=== PATIENT | female | born 1960 | race Caucasian/White ===

== ENCOUNTER 2017-09-01 13:27 | Inpatient (IN) | payer OTHER ==
[2017-09-01 13:48] LABS: #Basophils 0.1 thou/uL (0.0-0.2); #Eosinphils 0.2 thou/uL (0.0-0.7); #Lymphocytes 2.6 thou/uL (1.20-3.40); #Monocytes 1.1 thou/uL (0.11-0.59); #Neutrophils 5.2 thou/uL (1.40-6.50); %Basophils 0.7 % (0.0-1.0); %Eosinophils 1.9 % (0.0-10.0); %Neutrophils 57.4 % (42.0-75.0); Hemoglobin 15.2 g/dL (12.0-16.0); Mean Corpuscular HGB CONC 34.2 g/dL (32.0-36.0); Mean Corpuscular Hemoglobin 30.2 pg (27.0-31.0); Mean Corpuscular Volume 88.2 fl (81.0-99.0); Mean Platelet Volume 6.8 fL (7.4-10.4); Platelet Count 315 thou/uL (130-400); RBC Distribution Width 12.3 % (11.5-14.5); Red Blood Cell (RBC) Count 5.03 mill/uL (4.20-5.40); White Blood Cell (WBC) Count 9.1 thou/uL (4.8-10.8)
[2017-09-01 14:09] LABS: ALT (SGPT) 44 U/L (8-55); AST (SGOT) 28 U/L (5-34); Albumin 3.8 g/dL (3.5-5.0); Alkaline Phosphatase 74 U/L (40-150); Anion Gap 11 mmol/L (10-20); BUN (Urea Nitrogen) 15 mg/dL (9.8-20.1); Bilirubin, Total 0.4 mg/dL (0.2-1.2); CK (CPK) 52 U/L (29-168); Calc. Creatinine Clearance 0 mL/min (70-130); Calcium 9.5 mg/dL (7.8-10.44); Carbon Dioxide 30 mmol/L (22-29); Chloride 100 mmol/L (98-107); Estimated GFR-MDRD Greater than 90; Globulin 2.9 g/dL (2.4-3.5); Glucose 104 mg/dL (70-105); Lipase 11 U/L (8-78); Potassium 3.1 mmol/L (3.5-5.1); Protein, Total 6.7 g/dL (6.0-8.3); Sodium 138 mmol/L (136-145)
[2017-09-01 14:14] LABS: CKMB 0.9 ng/mL (0-6.6); Troponin I Less than 0.010 ng/mL (< 0.028)
--- NOTE | 2017-09-01 14:18 | RAD ---
PORTABLE CHEST: HISTORY: Chest pain. FINDINGS: The lung milan are clear. The heart and mediastinum are unremarkable. Vascular markings are normal . IMPRESSION: Unremarkable portable chest. POS: OFF
[2017-09-01] MEDS ORDERED: Diltiazem 125 MG in Sodium Chloride 0.9% 100 ML IVPB SCH ×2 (14:45→15:45)
[2017-09-01] MEDS ORDERED: Ondansetron HCl/PF 4 MG/2 ML Vial IVP PRN (15:37)
[2017-09-01] MEDS ORDERED: Bisacodyl 5 MG TAB PO PRN (15:37)
[2017-09-01] MEDS ORDERED: Acetaminophen 650 MG Suppository PR PRN (15:37)
[2017-09-01] MEDS ORDERED: Acetaminophen 325 MG TAB PO PRN (15:37)
--- NOTE | 2017-09-01 16:16 | HP ---
PRIMARY CARE PHYSICIAN: Dr. Bhavin Fragoso. CHIEF COMPLAINT: Palpitations. HISTORY OF PRESENT ILLNESS: Ms. Felix is a pleasant 56-year-old lady who was seen at [facility] on 09/01/2017. She reports that last week, she was diagnosed with bronchitis. S he reports that she was having cough at that time. She was treated with Z-KAVITHA. Around 5:00 p.m. yesterday, she developed palpitations. She also reports left-sided chest discomfort that was dull. Both chest pain and palpitations have been going on till now. She also reports some pain over the back of her left shoulder and left upper arm. She also reports shortness of breath wi th exertion. She denies any orthopnea or paroxysmal nocturnal dyspnea. REVIEW OF SYSTEMS: The following complete review of systems was negative, unless otherwise mentioned in the HPI or below: Constitutional: Weight loss or gain, ability to conduct usual activities. Skin: Rash, itching. Eyes: Double vision, pain. ENT/Mouth: Nose bleeding, neck stiffness, pain, tenderness. Cardiovascular: Palpitations, dyspnea on exertion, orthopnea. Respiratory: Shortness of breath, wheezing, cough, hemoptysis, fever or night sweats. Gastrointestinal: Poor appetite, abdominal pain, heartburn, nausea, vomiting, constipation, or diarr hea. Genitourinary: Urgency, frequency, dysuria, nocturia. Musculoskeletal: Pain, swelling. Neurologic/Psychiatric: Anxiety, depression. Allergy/Immunologic: Skin rash, bleeding tendency. PAST MEDICAL HISTORY: Significant for hypertension and dyslipidemia. PAST SURGICAL HISTORY: Bladder lift surgery. SOCIAL HISTORY: The patient denies tobacco use. She reports occasional alcohol use. She denies any recreational drug use. FAMILY HISTORY: Atrial fibrillation in her father. ALLERGIES: PENICILLIN. CURRENT MEDICATIONS: Include citalopram 20 mg daily, chlorthalidone 25 mg daily, and Crestor 10 mg d aily. PHYSICAL EXAMINATION: GENERAL: Ms. Felix is awake and alert, not in acute distress. VITAL SIGNS: Blood pressure is 112/87, pulse is 113, she is breathing at rate of 17 and saturating 1 00% on 2 liters of oxygen. She is afebrile. EYES: No scleral icterus. No conjunctival pallor. ENT: Moist mucosal membranes, no oropharyngeal erythema or exudates. NECK: Supple, nontender, normal range of movement. Trachea is midline. RESPIRATORY: Accessory muscles of breathing are not active. Chest wall movements are symmetric bila terally. LUNGS: Clear to auscultation without wheeze, rhonchi or crepitations. CARDIOVASCULAR: S1 and S2 are heard, tachycardic and irregular. Peripheral pulses palpable. No car otid bruit, no pericardial rub. ABDOMEN: Soft, nontender, bowel sounds heard, no hepatomegaly, no splenomegaly. NEUROLOGIC: Cranial nerves II through XII intact. Deep tendon reflexes 2+. MUSCULOSKELETAL: Power is 5/5 in all 4 extremities. Normal range of movement at all major extremity joints. SKIN: No rashes or subcutaneous nodules. LYMPHATIC: No cervical lymphadenopathy. PSYCHIATRIC: Normal mood, normal affect, patient is oriented to person, place, and time. LABORATORY DATA: Ms. Felix's labs and investigations were reviewed. I reviewed her electrocardiogr am, which shows atrial fibrillation with rapid ventricular response, no ST changes to suggest an acut e coronary syndrome. I also reviewed her chest x-ray, which does not show any pulmonary infiltrates. She has an unremarkable CBC, normal D-dimer of 0.3, normal sodium, decreased potassium of 3.1, norm al LFTs, normal creatinine, normal troponin I and a slightly elevated BNP of 382. ASSESSMENT AND PLAN: Ms. Felix is a pleasant 56-year-old lady who was seen at [facility] on 09/01/2017. Her problem list includes: 1. Palpitations: Secondary to atrial fibrillation with rapid ventricular response. 2. Atrial fibrillation with rapid ventricular response: Ms. Felix will be admitted to the hospital . She has received Cardizem bolus. We will continue her on Cardizem drip. We will check 2D echocar diogram. We will check TSH level. We will consult Cardiology for opinion and help with management. We will start her on aspirin for now. 3. Hypokalemia: Replace potassium. 4. Hypertension: Monitor vital signs, titrate antihypertensives as needed. 5. Dyslipidemia: Continue statin. Many thanks for allowing me to participate in your patient's care. Please feel free to contact me wi th any questions or concerns. LEVEL OF RISK: High. LEVEL OF COMPLEXITY: High.
[2017-09-01] MEDS ORDERED: Potassium Chloride 20 MEQ TAB PO SCH (16:30)
[2017-09-01 16:53] VITALS: BP 107/76; TEMP 98.5
[2017-09-01 17:28] LABS: Troponin I Less than 0.010 ng/mL (< 0.028)
[2017-09-01 17:34] VITALS: BMI 26.5
--- NOTE | 2017-09-01 18:32 | CON ---
DATE OF CONSULTATION: 09/01/2017 REASON FOR CONSULTATION: Atrial fibrillation. HISTORY OF PRESENT ILLNESS: Ms. Felix is a very pleasant 56-year-old woman with no previous past me dical history of atrial fibrillation recently presented with palpitations. She was found to be in at rial fibrillation. She states her episode occurred for 20 hours. She has had intermittent episodes in the past, but this episode became consistent. No chest pain or pressure or other associated sympt oms noted. PAST MEDICAL HISTORY: Hypertension, hyperlipidemia, bladder suspension. SOCIAL HISTORY: No current tobacco or alcohol use. ALLERGIES: PENICILLIN. FAMILY HISTORY: Positive for atrial fibrillation. MEDICATIONS: Chlorthalidone, Crestor. REVIEW OF SYSTEMS: Ten-point review of systems reviewed and is as above, otherwise negative. PHYSICAL EXAMINATION: VITAL SIGNS: Blood pressure 107/76, pulse 85, temperature 98.5. GENERAL: Patient is a pleasant female, who is in no acute distress. The patient appears her stated age. NEUROLOGIC: The patient is alert and oriented times 3 with no focal neurologic deficits. HEENT: Sclerae without icterus. Mouth has moist mucous membranes with normal pallor. NECK: No JVD. Carotid upstroke brisk. No bruits bilaterally. LUNGS: Clear to auscultation with unlabored respirations. BACK: No scoliosis or kyphosis. CARDIAC: Regular rate and rhythm with normal S1 and S2. No S3 or S4 noted. No significant rubs, murmurs, thrills, or gallops noted throughout the precordium. PMI is not displaced. There is no parasternal heave. ABDOMEN: Soft, nontender, nondistended. No peritoneal signs present. No hepatosplenomegaly. No abnormal striae. EXTREMITIES: 2+ femoral and 2+ dorsalis pedis pulses. No cyanosis, clubbing, or edema. SKIN: No gross abnormalities. PERTINENT LABS: Hemoglobin 15.2, creatinine 0.63. BNP of 382. TSH is 0.0026. IMPRESSION: Atrial fibrillation. RECOMMENDATIONS: Likely related to hyperthyroidism. At this point, her CHADS-VASc score is 2. Cain mmend anticoagulation therapy in addition to beta betsey treatment. At this point, we will hold off on Multaq until her TSH improved. We will discuss with Dr. Presley.
[2017-09-01 20:17] LABS: Free T4 (Free Thyroxine) 2.81 ng/dL (0.70-1.48)
[2017-09-01] MEDS ORDERED: Benzonatate 100 MG CAP PO SCH (21:00)
--- NOTE | 2017-09-02 00:39 | DIS ---
DATE OF ADMISSION: 09/01/2017 DATE OF DISCHARGE: 09/01/2017 PRIMARY CARE PHYSICIAN: Bhavin Fragoso M.D. DISCHARGE DIAGNOSES: 1. Atrial fibrillation. 2. Hyperthyroidism, suspected. DISCHARGE MEDICATIONS: Metoprolol succinate 25 mg daily, rivaroxaban 20 mg daily, Crestor 10 mg sylvia y, Celexa 20 mg daily, chlorthalidone 25 mg daily. CONSULTATIONS DURING THIS HOSPITALIZATION: Cardiology, Dr. Amaya. HOSPITAL COURSE: Ms. Felix is a pleasant 56-year-old lady who was admitted to [facility] for atrial fibrillation with rapid ventricular response on 09/01/2017. She was started on a diltiazem drip. She is spontaneously converted to normal sinus rhythm the same day. She was found to have a low TSH of 0.0026, suggesting hyperthyroidism. She is advised to follow up w ith her primary care provider for further testing of thyroid profile. She was seen by Cardiology Service. She was offered a 2D echocardiogram while in the hospital. She declined to have the echocardiogram as an inpatient. She will follow up with Cardiology Service as o utpatient. Many thanks for allowing me to participate in your patient's care. Please feel free to contact me wi th any questions or concerns. DISCHARGE DESTINATION: Home.
--- NOTE | 2017-09-02 07:00 | ADD-DIS ---
ADDENDUM Ms. Felix's free T3 and free T4 levels were added as an add-on test to the blood at [place] on . At the time of this dictation, the levels of free T3 and free T4 are not available. She i s advised to follow up with her primary care provider for the result.
[2017-09-02] MEDS ORDERED: Dronedarone HCl 400 MG TAB PO SCH (08:00)
[2017-09-02] MEDS ORDERED: Rivaroxaban 10 MG TAB PO SCH (09:00)
[2017-09-02] MEDS ORDERED: Aspirin 81 mg Enteric Coated Tablet PO SCH (09:00)
[2017-09-02] MEDS ORDERED: Enoxaparin Sodium 40 MG/0.4 ML SYRINGE SC SCH (09:00)
== END 2017-09-01 18:57 | disposition home or self-care (01) | DRG 310 ==
LOC: ERS 13:27 → 2NO 15:25
PROVIDERS: ADMIT Internal Medicine; ATTEND Internal Medicine
DX: I48.91 Unspecified atrial fibrillation (principal); E05.90 Thyrotoxicosis, unspecified without thyrotoxic crisis or storm; E87.6 Hypokalemia; I10 Essential (primary) hypertension; E78.5 Hyperlipidemia, unspecified; Z88.0 Allergy status to penicillin; Z79.899 Other long term (current) drug therapy
CPT/HCPCS: 36415; 71045; 80053; 82553; 83690; 83880; 84439; 84443; 84481; 84484; 85025; 85379; 93005; 96365; 96376; J7050

== ENCOUNTER 2017-09-08 08:32 | Inpatient (IN) | payer OTHER ==
[2017-09-08 09:14] LABS: #Basophils 0.1 thou/uL (0.0-0.2); #Eosinphils 0.1 thou/uL (0.0-0.7); #Lymphocytes 2.3 thou/uL (1.20-3.40); #Monocytes 1.1 thou/uL (0.11-0.59); #Neutrophils 5.5 thou/uL (1.40-6.50); %Basophils 0.6 % (0.0-1.0); %Eosinophils 0.9 % (0.0-10.0); %Lymphocytes 25.3 % (21.0-51.0); %Monocytes 11.9 % (0.0-10.0); %Neutrophils 61.4 % (42.0-75.0); Hemoglobin 15.9 g/dL (12.0-16.0); Mean Corpuscular Volume 88.2 fl (81.0-99.0); Mean Platelet Volume 7.2 fL (7.4-10.4); Platelet Count 367 thou/uL (130-400); RBC Distribution Width 12.2 % (11.5-14.5); Red Blood Cell (RBC) Count 5.31 mill/uL (4.20-5.40)
[2017-09-08] MEDS ORDERED: Esmolol 2,500 MG/250 ML 0 ML ONE (09:21)
[2017-09-08] MEDS ORDERED: Esmolol 2,500 MG/250 ML 250 ML IVPB SCH ×2 (09:30→15:15)
[2017-09-08] MEDS ORDERED: Esmolol 100 MG/10 ML VIAL IVP SCH (09:30)
--- NOTE | 2017-09-08 09:31 | RAD ---
UPRIGHT PORTABLE CHEST 1 VIEW: Date: 09/08/17 HISTORY: 56-year-old female with history of chest pain, shortness of breath, and elevated heart rate. COMPARISON: 09/01/17. FINDINGS: Monitor leads overlie the chest. Heart size is within normal limits. The lungs are clear. IMPRESSION: No acute intrathoracic disease. POS: [facility]
[2017-09-08 09:38] LABS: ALT (SGPT) 48 U/L (8-55); AST (SGOT) 27 U/L (5-34); Alkaline Phosphatase 73 U/L (40-150); Anion Gap 13 mmol/L (10-20); BUN (Urea Nitrogen) 17 mg/dL (9.8-20.1); Bilirubin, Total 0.7 mg/dL (0.2-1.2); CK (CPK) 43 U/L (29-168); Calc. Creatinine Clearance 0 mL/min (70-130); Calcium 10.6 mg/dL (7.8-10.44); Carbon Dioxide 32 mmol/L (22-29); Chloride 91 mmol/L (98-107); Estimated GFR-MDRD Greater than 90; Globulin 3.3 g/dL (2.4-3.5); Glucose 116 mg/dL (70-105); Protein, Total 7.3 g/dL (6.0-8.3); Sodium 133 mmol/L (136-145)
[2017-09-08 09:40] LABS: BHCG - Serum Negative (NEGATIVE); Pregs Control Background? CLEAR/WHITE (CLR/WHITE); Pregs Control Bar Appear? YES (CONTROL BAR)
[2017-09-08 09:42] LABS: CKMB 0.5 ng/mL (0-6.6); Troponin I Less than 0.010 ng/mL (< 0.028)
[2017-09-08 09:46] LABS: Potassium 2.6 mmol/L (3.5-5.1)
[2017-09-08 10:08] LABS: Thyroid Stimulating Hormone 0.0031 uIU/mL (0.35-4.94)
[2017-09-08] MEDS ORDERED: Potassium Chloride 20 MEQ TAB ONE (13:04)
[2017-09-08 14:51] VITALS: BMI 26.3
[2017-09-08] MEDS ORDERED: Acetaminophen 325 MG TAB PO PRN (15:00)
[2017-09-08] MEDS ORDERED: Ondansetron HCl/PF 4 MG/2 ML Vial IVP PRN (15:00)
[2017-09-08] MEDS ORDERED: Mag-Al 1200 mg/1200 mg/30 ML UDCUP PO PRN (15:00)
[2017-09-08] MEDS ORDERED: Bisacodyl 5 MG TAB PO PRN (15:00)
[2017-09-08] MEDS ORDERED: Potassium Chloride 20 MEQ TAB PO SCH (15:30)
[2017-09-08] MEDS ORDERED: Sodium Chloride 0.9% 500 ML IV SCH (15:45)
[2017-09-08] MEDS: Sodium Chloride 0.9% 1,000 ML IV SCH ×2 (15:53→20:43)
[2017-09-08] MEDS: Methimazole 5 MG TAB PO SCH ×2 (16:28→20:43)
[2017-09-08] MEDS: Rivaroxaban 10 MG TAB PO SCH (16:29)
--- NOTE | 2017-09-08 23:03 | HP ---
DATE OF ADMISSION: 09/08/2017 PRIMARY CARE PHYSICIAN: Dr. Bhavin Fragoso. REASON FOR ADMISSION: Recurrent atrial fibrillation and hyperthyroidism. HISTORY OF PRESENT ILLNESS: Ms. Tianna Felix a 56-year-old female with a significant past medic al history of hyperthyroidism, atrial fibrillation, and hyperlipidemia, who presents to the emergency room complaining of palpitations, which began approximately 7:00 p.m. yesterday. She was then evalu ated at the lime kiln worker helper's office today and then sent to the emergency room. She denies any chest pa in or shortness of breath. Of note, the patient was recently admitted and discharged from [facility] on 09/01/2017, at which time she had atrial fibrillation secondary to her hyperthyroidism. Her TS H at the time of 0.0026. She was discharged and later on a T3 and T4 was added to her profile and re turned back free T3 level of 12.21 and a free T4 level of 2.81. During that admission, echocardiogra m was offered; however, she did not want it. She did have an echocardiogram as an outpatient, which reportedly had some mild diastolic dysfunction with a normal EF. She returns back to the emergency r oom today complaining of palpitations. She was found to be in atrial fibrillation with a heart rate of 140-150. She was placed on esmolol drip and subsequently admitted to the critical care unit. Of note, she was placed on esmolol drip. There was no Cardizem available. She is currently resting com fortably. She denies any shortness of breath, any tremors, no diaphoresis. She has not noticed any visual changes. There has been no report of orbitopathy or signs of exophthalmos. She states that s he was trying to get scheduled into the geropsychologist; however, was unable to. She is now currentl y resting comfortably. She denies any pain on swallowing. She has been admitted to the Critical Car e Unit for further evaluation. She is currently on esmolol drip. PAST MEDICAL HISTORY: 1. Atrial fibrillation. 2. Hyperthyroidism. 3. Hyperlipidemia. 4. Anxiety. PAST SURGICAL HISTORY: A bladder lift surgery. CODE STATUS: FULL CODE. SOCIAL HISTORY: Denies any alcohol use, tobacco use, or illicit drug use. No excessive caffeine use . CURRENT MEDICATIONS: 1. Crestor 10 mg p.o. daily. 2. Xarelto 20 mg p.o. daily. 3. Metoprolol succinate 25 mg p.o. daily. 4. Celexa 20 mg p.o. daily. 5. Chlorthalidone 25 mg p.o. daily. ALLERGIES: PENICILLINS. FAMILY HISTORY: Significant for atrial fibrillation in her father. REVIEW OF SYSTEM: The following complete review of systems was negative, unless otherwise mentioned in the HPI or below: Constitutional: Weight loss or gain, sense of well-being, ability to conduct usual activities, exerc ise tolerance. Skin/Breast: Rash, itching, changes in hair growth or loss, nail changes, breast lumps, tenderness, swelling, nipple discharge. Eyes: Vision, double vision, tearing, blind spots, pain. ENT/Mouth: Headaches (location, time of onset, duration, precipitating factors), vertigo, lightheade dness, injury. Vision, double vision, tearing, blind spots, pain, nose bleeding, colds, obstruction, discharge, dental difficulties, gingival bleeding, dentures, neck stiffness, pain, tenderness, masses in thyroid or other areas Cardiovascular: Precordial pain, substernal distress, palpitations, syncope, dyspnea on exertion, or thopnea, nocturnal paroxysmal dyspnea, edema, cyanosis, hypertension, heart murmurs, varicosities, ph lebitis, claudication. Respiratory: Pain, shortness of breath, wheezing, stridor, cough, hemoptysis, fever or night sweats. Gastrointestinal: Poor appetite, dysphagia, indigestion, abdominal pain, heartburn, eructation, naus ea, vomiting, hematemesis, jaundice, constipation, or diarrhea, abnormal stools (raegan-colored, tarry, bloody, greasy, foul smelling), flatulence, hemorrhoids, recent changes in bowel habits. Genitourinary: Urgency, frequency, dysuria, nocturia, hematuria, polyuria, oliguria, unusual (or deep nge in) color of urine, stones, hesitancy, change in size of stream, dribbling, acute retention or in continence, libido, potency. Musculoskeletal: Pain, swelling, redness or heat of muscles or joints, limitation, of motion, muscul ar weakness, atrophy, cramps. Neurologic/Psychiatric: Convulsions, paralyses, tremor, incoordination, parasthesias, difficulties w ith memory of speech, sensory or motor disturbances, or muscular coordination (ataxia, tremor), emoti onal problems, anxiety, depression, previous psychiatric care, unusual perceptions, hallucinations. Allergy/Immunologic: Skin rash, anemia, bleeding tendency, polydipsia, polyuria, intolerance to heat or cold. PHYSICAL EXAMINATION: VITAL SIGNS: Blood pressure currently is 101/61, heart rate is ranging from 101-128, respirations ar e 16, and O2 sats are 94% on room air. GENERAL: She is in no acute distress, nontoxic appearing. EYES: Show pupils are round and reactive to light and accommodation. No pale conjunctivae. ENT/MOUTH: Moist oral mucosa, no lesions. NECK: On thyroid examination, no overt goiter is palpable. RESPIRATORY: Equal chest wall expansion. No wheezes, rhonchi, or rales. CARDIOVASCULAR: S1 and S2 present. No murmurs, gallops, or rubs. GASTROINTESTINAL: Soft, nontender, nondistended. Bowel sounds presents in all 4 quadrants. MUSCULOSKELETAL: Good range of motion in all 4 extremities. No clubbing, no cyanosis. LYMPHATIC: No swollen or painful cervical, axillary lymph nodes. NEUROLOGIC: No ptosis, no facial asymmetry, jaw protrusion, no focal deficits. PSYCHIATRIC: She is awake, alert to time, place, person, answers questions appropriately. SKIN: Normal skin turgor. LABORATORY AND X-RAY FINDINGS: 1. Taken in the emergency room today showed sodium 133, potassium 2.6, chloride 91, carbon dioxide 3 2, anion gap 13, BUN 17, creatinine 0.63, glucose is 116, calcium 10.6, magnesium is 2.0. AST and AL T 27 and 48. Alkaline phosphatase 73. CK 43, troponin less than 0.01. TSH 0.0031. Free T4 is 2.81 , free T3 is 12.21. Serum is negative. WBC is 9.3, hemoglobin 15.9, hematocrit 46.9, plat elet count 362,000. Chest x-ray done in the emergency room revealed no acute intrathoracic disease. 2. EKG revealed atrial fibrillation . ASSESSMENT AND PLAN: Ms. Tianna Felix a 56-year-old female with past medical, atrial fibrillati on, hyperthyroidism, hyperlipidemia, who presents to the emergency room complaining of palpitations. 1. Palpitations, at the time, we will admit the patient to the critical care unit. Palpitations sec ondary to atrial fibrillation was most likely precipitated by hyperthyroidism. At this time, she has been placed on esmolol drip and will titrate accordingly. She will eventually need to be transition ed to a beta betsey as propranolol or atenolol. We will consult Cardiology for further assistance i n this. 2. Hyperthyroidism. Given that she is not , we will start the patient on methimazole and mo nitor her clinical response. She will require further evaluation. Most likely a thyroid ultrasound or radioiodine uptake; however, this needs to be done as an outpatient when she is more stable from a cardiac standpoint. 3. Hypokalemia, replete. 4. Resume the patient's medications. 5. We will obtain echocardiogram results from her lime kiln worker helper's office. 6. Resume Xarelto. 7. FULL CODE. 8. P.r.n. order set. 9. Heart healthy diet. 10. I explained all this to the patient at bedside. She is agreeable to the plan of treatment. All questions have been answered. 11. The patient's further hospital course will be dictated by her clinical course while here. Total critical care time spent 34 minutes.
[2017-09-09] MEDS: Sodium Chloride 0.9% 1,000 ML IV SCH ×3 (01:25→11:53)
[2017-09-09 04:57] LABS: Anion Gap 9 mmol/L (10-20); BUN (Urea Nitrogen) 15 mg/dL (9.8-20.1); Calc. Creatinine Clearance 138 mL/min (70-130); Calcium 8.8 mg/dL (7.8-10.44); Carbon Dioxide 28 mmol/L (22-29); Chloride 105 mmol/L (98-107); Estimated GFR-MDRD Greater than 90; Glucose 93 mg/dL (70-105); Potassium 3.2 mmol/L (3.5-5.1); Sodium 139 mmol/L (136-145)
[2017-09-09 06:25] LABS: #Eosinphils 0.2 thou/uL (0.0-0.7); #Lymphocytes 2.8 thou/uL (1.20-3.40); #Neutrophils 3.9 thou/uL (1.40-6.50); %Basophils 0.2 % (0.0-1.0); %Eosinophils 2.8 % (0.0-10.0); %Lymphocytes 34.9 % (21.0-51.0); %Monocytes 12.7 % (0.0-10.0); %Neutrophils 49.4 % (42.0-75.0); Hemoglobin 12.2 g/dL (12.0-16.0); Mean Corpuscular HGB CONC 33.2 g/dL (32.0-36.0); Mean Corpuscular Hemoglobin 29.8 pg (27.0-31.0); Mean Corpuscular Volume 89.7 fl (81.0-99.0); Mean Platelet Volume 7.4 fL (7.4-10.4); Platelet Count 273 thou/uL (130-400); RBC Distribution Width 12.1 % (11.5-14.5); Red Blood Cell (RBC) Count 4.08 mill/uL (4.20-5.40)
--- NOTE | 2017-09-09 08:00 | CON ---
DATE OF CONSULTATION: 09/08/2017 HISTORY OF PRESENT ILLNESS: Tianna Felix is a 56-year-old white female who was evaluated by Dr. Amaya when she was here last week in the hospital; however, the patient and her are friends with Dr. Van and she wished to follow up with him. She was admitted here initially on 09/01 with palpitations. She had dull left-sided chest discomfort associated with this, came to the emergency room and was found to be in atrial fibrillation with fast ventricular response. She was treated with intravenous Cardizem and converted to sinus rhythm. She was also found to have a low TSH of 0.0026. Free T4 was 2.81, free T3 was 12.21. Cardiac enzymes were unremarkable. She was waiting on an echo and decided to have this performed as an outpatient. She was discharged on Toprol 25 daily, Xarelto 20 daily, Crestor 10 daily, Celexa 20 daily, and chlorthalidone 25 daily. Attempts have been made to get an appointment with an graduate recruiter; however, the attempts have been unsuccessful. She presented to the office yesterday complaining of fatigue and shortness of breath. The decision was made to stop the metoprolol. She then presented to the office again today and was in atrial fibrillation with rapid ventricular response of 154 per minute. She was sent to the emergency room, she was placed on esmolol drip and has been transitioned to atenolol. She also has been started on methimazole. She was found to be hypokalemic as well. PAST MEDICAL HISTORY: Recently diagnosed hyperthyroidism, hypertension, and hypercholesterolemia. OPERATIONS: Bladder lift surgery. SOCIAL HISTORY: She does not smoke. She occasionally drinks. FAMILY HISTORY: Negative for coronary artery disease. REVIEW OF SYSTEMS: Twelve-point review of systems unremarkable. ALLERGIES: PENICILLIN. PHYSICAL EXAMINATION: VITAL SIGNS: Blood pressure 97/68, pulse of 99, sinus rhythm on the monitor. HEENT: PERRL. NECK: Supple. CHEST: Clear. CARDIAC: S1 and S2 are normal, without any S3, S4 or murmurs. Carotid upstrokes normal without bruits. ABDOMEN: Normal bowel sounds, without tenderness, organomegaly. EXTREMITIES: Revealed no clubbing, cyanosis or edema. NEUROLOGIC: Grossly intact. LABORATORY DATA: Sodium 133, potassium 2.6, chloride 91, carbon dioxide 32, BUN 17, creatinine 0.63. Cardiac enzymes are normal. Hemoglobin 15.9, hematocrit 46.9, white count 9000, platelets 367,000. Echocardiogram in the office revealed normal left ventricular function with ejection fraction of 50% to 55%, evidence for diastolic dysfunction, mild mitral regurgitation, mild tricuspid regurgitation. There also was an interatrial septal aneurysm present. IMPRESSION: 1. Hyperthyroidism. 2. Paroxysmal atrial fibrillation secondary to hyperthyroidism. 3. Hypertension. 4. Hypercholesterolemia. PLAN: I agree with increase in the amount of beta betsey. Methimazole has been started, which will help to reduce thyroid. The ultimate treatment for this will probably be I-131 ablation. BEN
[2017-09-09] MEDS: Methimazole 5 MG TAB PO SCH ×3 (09:17→20:06)
[2017-09-09] MEDS: Citalopram 20 MG TAB PO SCH (09:17)
[2017-09-09] MEDS: Rosuvastatin 10 MG TAB PO SCH (09:17)
--- NOTE | 2017-09-09 09:48 | PDOC.PN ---
- Subjective Encounter Start Date: 09/09/17 Encounter Start Time: 09:46 Subjective: no new problems overnight - Objective Resuscitation Status: Resuscitation Status FULL:Full Resuscitation MAR Reviewed: Yes Vital Signs & Weight: Vital Signs (12 hours) Temp 09/09/17 08:00 98.6 F 09/09/17 03:00 98.1 F 09/08/17 23:00 98.6 F Weight Weight 163 lb 2.273 oz Most Recent Monitor Data Heart Rate from ECG 106 NIBP 103/62 NIBP BP-Mean 71 Respiration from ECG 19 SpO2 94 I&O: 09/08/17 09/09/17 09/10/17 06:59 06:59 06:59 Intake Total 2380 400 Output Total 2700 150 Balance -320 250 Result Diagrams: 09/09/17 03:31 09/09/17 03:31 Phys Exam - Physical Examination Constitutional: NAD HEENT: PERRLA, moist MMs, sclera anicteric Neck: supple, full ROM Respiratory: no rhonchi, clear to auscultation bilateral Cardiovascular: no significant murmur sinus tachy Gastrointestinal: soft, non-tender, positive bowel sounds Musculoskeletal: no edema, pulses present Neurological: non-focal, moves all 4 limbs Psychiatric: normal affect, A&O x 3 Skin: normal turgor Dx/Plan (1) PAT (paroxysmal atrial tachycardia) Status: Acute (2) Hyperthyroidism Code(s): E05.90 - THYROTOXICOSIS, UNSP WITHOUT THYROTOXIC CRISIS OR STORM Status: Chronic (3) HTN (hypertension) Code(s): I10 - ESSENTIAL (PRIMARY) HYPERTENSION Status: Chronic (4) Hypokalemia Code(s): E87.6 - HYPOKALEMIA Status: Acute - Plan cont current plan of care TRANSFER TO TELEMETRY TODAY. HOME ONCE CLEARED BY CARDIOLOGY * .
[2017-09-09] MEDS ORDERED: Potassium Chloride 10 MEQ TAB PO SCH (10:30)
--- NOTE | 2017-09-09 17:04 | CON ---
DATE OF CONSULTATION: 09/09/2017 HISTORY OF PRESENT ILLNESS: Ms. Tianna Felix is a 56-year-old female, admitted to the hospital wit h recurrent SVT, recently diagnosed hypothyroidism. She is yet to find a physician to see her. She was seen yesterday by Cardiology for palpitation. She was sent to the ER. TSH was very low at 0.026. T4 was low. She has diastolic dysfunction. She is now started on esmolol drip. She was recently in the hospital here no more than a week ago for apparently similar problems. PAST MEDICAL HISTORY: Pertinent for recently diagnosed hypothyroidism, mild hypertension and hyperli pidemia. PAST SURGICAL HISTORY: Bladder lift surgery. TOBACCO: None. ALCOHOL: Minimal. MEDICATIONS FROM HOME: Crestor, Xarelto 20, metoprolol 25, Celexa 20, chlorthalidone 24. She is now on esmolol drip, Celexa, atenolol and Crestor. ALLERGIES: PENICILLIN. REVIEW OF SYSTEMS: Ten-point negative. PHYSICAL EXAMINATION: VITAL SIGNS: Sats are 96%, pulse 85 and blood pressure 180/80. GENERAL: She is in no distress. CHEST: Decreased breath sounds. No wheezing. CARDIAC: Normal S1 and S2. No gallops. ABDOMEN: Soft. No masses. LABORATORY AND IMAGING DATA: White blood cell count 8000, hemoglobin and hematocrit 12 and 36, plate let count 273. Electrolytes are normal. Chest x-ray was normal. TSH repeated 0.0031. IMPRESSION: Atrial fibrillation secondary to hypothyroidism. Free T3 was elevated at 12.21. PLAN: I agree with the present management. Pulmonary Critical Care will follow up while in the ICU. I encouraged her to see an machine maintenance as soon as possible. She is presently on methimazole, X arelto and atenolol as well. This is a consultation note, 70 minutes, 50% of time was spent at bedside.
[2017-09-09] MEDS: Rivaroxaban 10 MG TAB PO SCH (17:30)
[2017-09-09] MEDS ORDERED: Atenolol 25 MG TAB PO SCH ×2 (17:53→18:00)
[2017-09-10] MEDS: Methimazole 5 MG TAB PO SCH (08:33)
[2017-09-10] MEDS: Citalopram 20 MG TAB PO SCH (08:34)
[2017-09-10] MEDS: Rosuvastatin 10 MG TAB PO SCH (08:34)
[2017-09-10] MEDS ORDERED: Potassium Chloride 10 MEQ TAB PO SCH (09:00)
[2017-09-10] MEDS ORDERED: Atenolol 25 MG TAB PO SCH (09:00)
[2017-09-10 10:44] VITALS: BP 113/63; TEMP 99
--- NOTE | 2017-09-10 18:29 | DIS ---
DATE OF ADMISSION: 09/08/2017 DATE OF DISCHARGE: 09/10/2017 PRIMARY DISCHARGE DIAGNOSIS: Atrial fibrillation. SECONDARY DISCHARGE DIAGNOSIS: Hyperthyroidism. HOSPITAL COURSE: The patient was admitted secondary to atrial fibrillation. The patient noted to be newly diagnosed with hyperthyroidism. She was started on methimazole. The patient was seen by Card iology and the patient was treated successfully with beta-blockers. She has been instructed to obtai n a followup with an finishing machine operator automatic for definitive therapy for her hyperthyroidism. Her hospital st ay remained uneventful and she was deemed stable for discharge with close followup. CONSULTANTS: 1. Cardiology, Dr. Duran. 2. Pulmonary, Dr. Shea. PROCEDURES: None. DISCHARGE DISPOSITION: To home. DISCHARGE ACTIVITY: As tolerated. DISCHARGE DIET: Heart healthy. PHYSICAL EXAMINATION: GENERAL: She is in no acute distress. HEAD: Normocephalic, atraumatic. EYES: PERRL. Extraocular muscles are intact. CARDIAC: Sinus tachycardia. No murmurs, regurge, gallops. LUNGS: Clear to auscultation, no rhonchi, no wheezing. ABDOMEN: Nontender, nondistended. EXTREMITIES: No clubbing, cyanosis or edema. DISCHARGE MEDICATIONS: The patient was sent home with metoprolol XL 25 every day, as well as methima zole 5 mg p.o. t.i.d., Celexa 20 mg every day, chlorthalidone 25 mg every day, potassium chloride 10 mEq daily, Xarelto 20 mg at bedtime, and Crestor 10 mg at bedtime. DISCHARGE INSTRUCTIONS: The patient was instructed to follow up with her PCP. She is also in search of an finishing machine operator automatic for definitive treatment for her hyperthyroidism. She is to follow up with Ca rdiology as needed and return to the Emergency Department if needed.
--- NOTE | 2017-09-15 11:56 | EKG ---
Test Reason : SOB Blood Pressure : / mmHG Vent. Rate : 149 BPM Atrial Rate : 163 BPM P-R Int : 000 ms QRS Dur : 082 ms QT Int : 314 ms P-R-T Axes : 000 045 047 degrees QTc Int : 494 ms Atrial fibrillation with rapid ventricular response Cannot rule out Anterior infarct , age undetermined Abnormal ECG Confirmed by NUSRAT GARCIA M.D. ([id number]), telegraph editor SAMMY ROMANO ([id number]) on 09/15/2017 11:56:03 AM Referred By: Confirmed By:NUSRAT GARCIA M.D.
== END 2017-09-10 10:35 | disposition home or self-care (01) | DRG 310 ==
LOC: ERS 08:32 → CCU 11:21 → 2SE 09-09 16:08
PROVIDERS: ADMIT Hospitalist; ATTEND Hospitalist
DX: I48.0 Paroxysmal atrial fibrillation (principal); I08.1 Rheumatic disorders of both mitral and tricuspid valves; E05.90 Thyrotoxicosis, unspecified without thyrotoxic crisis or storm; E78.5 Hyperlipidemia, unspecified; F41.9 Anxiety disorder, unspecified; Z88.0 Allergy status to penicillin; E87.6 Hypokalemia; Z79.01 Long term (current) use of anticoagulants; I10 Essential (primary) hypertension
CPT/HCPCS: 36415; 71045; 80048; 80053; 82550; 82553; 83735; 84443; 84484; 84703; 85025; 93005; 96361; 96365; 96366; 96376; A4216

== ENCOUNTER 2017-12-12 13:00 | Outpatient (CLI) | payer OTHER | END 2017-12-12 13:01 | disposition home or self-care (01) | LOC: BICCT 13:00 | DX: E05.00 Thyrotoxicosis with diffuse goiter without thyrotoxic crisis or storm (principal); H05.20 Unspecified exophthalmos | CPT/HCPCS: 70480 ==

== ENCOUNTER 2018-03-23 06:03 | Observation (INO) | payer OTHER ==
[2018-03-23] MEDS ORDERED: Diltiazem 125 MG/25 ML ONE (06:25)
[2018-03-23 06:45] LABS: #Basophils 0.1 thou/uL (0.0-0.2); #Monocytes 0.8 thou/uL (0.11-0.59); #Neutrophils 5.6 thou/uL (1.40-6.50); %Basophils 0.8 % (0.0-1.0); %Eosinophils 0.1 % (0.0-10.0); %Lymphocytes 31.8 % (21.0-51.0); %Monocytes 7.9 % (0.0-10.0); %Neutrophils 59.4 % (42.0-75.0); Hemoglobin 15.6 g/dL (12.0-16.0); Mean Corpuscular HGB CONC 32.6 g/dL (32.0-36.0); Mean Corpuscular Hemoglobin 28.7 pg (27.0-31.0); Mean Platelet Volume 6.5 fL (7.4-10.4); Platelet Count 337 thou/uL (130-400); RBC Distribution Width 12.8 % (11.5-14.5); Red Blood Cell (RBC) Count 5.42 mill/uL (4.20-5.40); White Blood Cell (WBC) Count 9.5 thou/uL (4.8-10.8)
[2018-03-23 06:59] LABS: ALT (SGPT) 31 U/L (8-55); AST (SGOT) 14 U/L (5-34); Albumin 3.8 g/dL (3.5-5.0); Alkaline Phosphatase 100 U/L (40-150); Anion Gap 10 mmol/L (10-20); BUN (Urea Nitrogen) 12 mg/dL (9.8-20.1); Bilirubin, Total 0.5 mg/dL (0.2-1.2); Calc. Creatinine Clearance 0 mL/min (70-130); Calcium 9.4 mg/dL (7.8-10.44); Carbon Dioxide 29 mmol/L (22-29); Chloride 103 mmol/L (98-107); Estimated GFR-MDRD 76; Glucose 93 mg/dL (70-105); Lipase 9 U/L (8-78); Potassium 3.4 mmol/L (3.5-5.1); Protein, Total 6.8 g/dL (6.0-8.3); Sodium 139 mmol/L (136-145)
[2018-03-23 07:22] LABS: CKMB 0.5 ng/mL (0-6.6); Troponin I Less than 0.010 ng/mL (< 0.028)
--- NOTE | 2018-03-23 07:47 | RAD ---
PORTABLE CHEST 1 VIEW: Date: 03/23/18 Time: 0607 hours HISTORY: Rapid, irregular heartrate, tachycardia. FINDINGS: Comparison made with exam of 09/08/17. The heart size is normal. The lungs are expanded without focal areas of consolidation, pneumothoraces , or pleural effusions. IMPRESSION: No radiographic evidence of acute cardiopulmonary process. POS: [facility]
[2018-03-23] MEDS ORDERED: Metoprolol Tartrate 50 MG TAB ONE (08:17)
[2018-03-23] MEDS ORDERED: Zolpidem Tartrate 5 MG TAB PO PRN (09:35)
[2018-03-23] MEDS ORDERED: Famotidine 20 MG TAB PO SCH ×3 (09:35→21:00)
[2018-03-23] MEDS ORDERED: Labetalol HCl 100 MG/20 ML VIAL SLOW IVP PRN (09:35)
[2018-03-23] MEDS ORDERED: Milk Of Magnesia 30 ML UDCUP PO PRN (09:35)
[2018-03-23] MEDS ORDERED: Loratadine 10 MG TAB PO PRN (09:35)
[2018-03-23] MEDS ORDERED: Aspirin 325 MG TAB PO SCH ×2 (09:35→10:15)
[2018-03-23] MEDS ORDERED: Senokot 8.6 MG TAB PO PRN (09:35)
[2018-03-23] MEDS ORDERED: Sodium Chloride 0.65% Nasal 44 ML BOT EA NARE PRN (09:35)
[2018-03-23] MEDS ORDERED: Diabetic Tussin 200 MG/10 ML UDCUP PO PRN (09:35)
[2018-03-23] MEDS ORDERED: Ondansetron ODT 4 MG TAB PO PRN (09:35)
[2018-03-23] MEDS ORDERED: Eucerin (Mineral Oil/Petrolatum,White) 30 gm Jar TOP PRN (09:35)
[2018-03-23] MEDS ORDERED: Ondansetron HCl/PF 4 MG/2 ML Vial IVP PRN (09:35)
[2018-03-23] MEDS ORDERED: Artificial Tears 18 DROP/0.9 ML EA EYE PRN (09:35)
[2018-03-23] MEDS ORDERED: Acetaminophen 325 MG TAB PO PRN (09:35)
[2018-03-23] MEDS ORDERED: Loperamide HCl 2 MG CAP PO PRN (09:35)
[2018-03-23] MEDS ORDERED: Lorazepam 1 MG TAB PO PRN (09:35)
[2018-03-23] MEDS ORDERED: Metoprolol Tartrate 50 MG TAB PO SCH ×3 (09:35→21:00)
[2018-03-23] MEDS ORDERED: HYDROcodone/Acetaminophen 5/325 mg Tablet PO PRN (09:35)
[2018-03-23] MEDS ORDERED: Mag-Al 1200 mg/1200 mg/30 ML UDCUP PO PRN (09:35)
[2018-03-23] MEDS ORDERED: Chloraseptic Spray 180 ml Bottle PO PRN (09:35)
[2018-03-23 09:37] VITALS: BMI 27.1
[2018-03-23] MEDS ORDERED: Potassium Chloride 20 MEQ TAB PO SCH (10:00)
--- NOTE | 2018-03-23 12:18 | HP ---
PRIMARY CARE PHYSICIAN: Bhavin Fragoso M.D. REASON FOR ADMISSION: Paroxysmal atrial fibrillation with rapid ventricular response. HISTORY OF PRESENT ILLNESS: A 57-year-old female who has underlying history of Graves' disease with hyperthyroidism, who was admitted one time in our hospital in 08/2017. At that time, the patient was treated for atrial fibrillation. The patient is taking Toprol-XL 25 mg p.o. daily and she is on chr onic anticoagulation with Xarelto. This morning when she woke up at that time, the patient was feeli ng that she is having atrial fibrillation based on her feeling. She was feeling her heart rate faste r and irregular. She was feeling dizziness. She was feeling mild nausea. The patient reports that on Monday, she had nausea, vomiting, diarrhea which lasted for 1 day and subsided by itself withou t doing anything on . The patient was also having subjective low-grade fever on Monday. When the patient came to ER, the patient was found with atrial fibrillation with RVR with heart rate was 125. In the emergency room, the patient was given Cardizem 20 mg IV push subsequently she conver zeny to sinus rhythm. ER physician notified Dr. Van on-call drug room operator and they recommended to g vu her metoprolol tartrate 50 mg. When the patient came to the observation floor, at that time the patient was completely asymptomatic and she was in sinus rhythm. The patient denies any previous stroke. She denies any diabetes history. 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 Currently, the patient denies any chest pain, palpitation, orthopnea, PND or leg swelling. REVIEW OF SYSTEMS: Please see my HPI for pertinent positive and negative. All other review of syste m reviewed and negative except as mentioned in the HPI. Constitutional: Weight loss or gain, ability to conduct usual activities. Skin: Rash, itching. Eyes: Double vision, pain. ENT/Mouth: Nose bleeding, neck stiffness, pain, tenderness. Cardiovascular: Palpitations, dyspnea on exertion, orthopnea. Respiratory: Shortness of breath, wheezing, cough, hemoptysis, fever or night sweats. Gastrointestinal: Poor appetite, abdominal pain, heartburn, nausea, vomiting, constipation, or diarrhea. Genitourinary: Urgency, frequency, dysuria, nocturia. Musculoskeletal: Pain, swelling. Neurologic/Psychiatric: Anxiety, depression. Allergy/Immunologic: Skin rash, bleeding tendency. PAST MEDICAL HISTORY: Hypertension, dyslipidemia, paroxysmal atrial fibrillation, Graves' disease (h yperthyroidism). PAST SURGICAL HISTORY: Bladder lift surgery, recent eye surgery for optic nerve decompression. PAST PSYCHIATRIC HISTORY: Anxiety and depression. SOCIAL HISTORY: The patient is and lives at home with her . She drinks alcohol every week. She denies any smoking. She denies any other illicit drug abuse. FAMILY HISTORY: No strong family history of coronary artery disease, stroke or cancer, but family hi story positive for atrial fibrillation to her father. ALLERGIES: PENICILLIN. CURRENT HOME MEDICATIONS: Xarelto 20 mg p.o. daily, Toprol-XL 25 mg p.o. daily, Crestor 10 mg p.o. d aily, potassium chloride 10 mEq p.o. daily, methimazole 10 mg p.o. b.i.d., Celexa 20 mg p.o. daily. EMERGENCY ROOM COURSE: The patient is given Cardizem 20 mg bolus, metoprolol 50 mg and IV fluid. PHYSICAL EXAMINATION: VITAL SIGNS: On arrival, blood pressure 104/71, pulse 140, respiratory rate 15, temperature 98.9, sa turation 96% on room air, weight 72.6 kilograms. GENERAL: The patient is currently alert, awake, no obvious acute distress. HEAD: Normocephalic, atraumatic. EYES: The patient does have right eye red because of recent surgery. Left eye within normal limits. No nystagmus. ENT: Oropharynx within normal limits. Moist mucous membranes. No oral lesion, no pharyngeal erythe ma, no exudate. NECK: Supple, no JVD, no thyromegaly, no carotid bruit, no jugular venous distention. LUNGS: Clear to auscultation without any rhonchi or rales. CARDIAC: S1, S2 regular currently. No murmur, no gallop, no rub. ABDOMEN: Soft, bowel sounds present, nontender, nondistended. No organomegaly, no mass, no suprapub ic tenderness. BACK: Unremarkable, no CVA tenderness. EXTREMITIES: Upper extremity: Passive movement of all joints are normal. Lower extremities: No ed marcelino. Good distal pulsation. SKIN: No skin rash. HEMATOLOGICAL: No lymphadenopathy. PSYCHIATRIC: Normal affect. NEUROLOGIC: The patient is moving all four limbs. Neurologically, nonfocal examination. Motor and sensation within normal limits. Speech normal. SIGNIFICANT LABORATORY DATA: EKG initially showing atrial fibrillation with rapid ventricular respon se. Subsequent EKG showed normal sinus rhythm within normal limits. CBC: WBC 9.5, hemoglobin 15.6, platelet 337. BMP: Sodium 139, potassium 3.4, chloride 103, carbon dioxide 29, anion gap 10, BUN 1 2, creatinine 0.78, glucose 93, calcium 9.4. LFT: AST 14, ALT 31, alkaline phosphatase 100, albumin 3.8, lipase 9. TSH 0.0338. Cardiac enzymes: CK-MB 0.5, troponin I less than 0.010. BNP 25.1. ASSESSMENT AND PLAN: 1. Paroxysmal atrial fibrillation with rapid ventricular response. The patient is converted to sinu s rhythm after Cardizem bolus, most likely related with her underlying hyperthyroidism. The patient is already on chronic anticoagulation with Xarelto. At this point, we will start metoprolol 50 mg p. o. b.i.d. We will continue new underlying hyperthyroidism treatment. Echocardiography will be obtai miguel. We will do serial cardiac enzymes. Cardiology will be consulted. Monitor on telemetry floor f or another 24 hours. We will check free T3 and free T4. Further management will defer to Cardiology . 2. Hyperthyroidism with a history of Graves' disease. The patient is following an resource program teacher lida Miranda. Currently, she is on antithyroid medication with methimazole 10 mg p.o. b.i.d. We will c ontinue metoprolol 50 mg p.o. b.i.d. upon discharge. We will check free T3 and free T4. 3. Dyslipidemia. Continue Crestor 10 mg p.o. at bedtime. 4. Anxiety and depression. Continue Celexa 20 mg p.o. daily. 5. Hypothyroidism. We will replace potassium chloride 40 mEq p.o. one time dose. 6. Deep venous thrombosis prophylaxis not needed because the patient is already on chronic anticoagu lation therapy with Xarelto. 7. Gastrointestinal prophylaxis, Pepcid 20 mg p.o. b.i.d. 8. Code status: The patient is FULL CODE. The patient's is surrogate decision maker. Disposition plan based on clinical course. We are expecting patient's stay in hospital 24-48 hours. Plan of care discussed with the patient and family member at bedside.
[2018-03-23 13:31] LABS: CKMB 0.5 ng/mL (0-6.6); Troponin I Less than 0.010 ng/mL (< 0.028)
[2018-03-23 14:32] LABS: Free T4 (Free Thyroxine) 0.77 ng/dL (0.70-1.48)
[2018-03-23 16:17] VITALS: TEMP 98.9
[2018-03-23] MEDS ORDERED: Rivaroxaban 10 MG TAB PO SCH (17:00)
[2018-03-23 17:09] VITALS: BP 115/68
--- NOTE | 2018-03-23 17:31 | DIS ---
DATE OF ADMISSION: 03/23/2018 at 9:32 a.m. DATE OF DISCHARGE: 03/23/2018 DISCHARGE DISPOSITION: Home. PRIMARY DISCHARGE DIAGNOSES: Atrial fibrillation with rapid ventricular response and hypokalemia. SECONDARY DISCHARGE DIAGNOSES: Paroxysmal atrial fibrillation, hyperthyroidism, anxiety and depressi on, dyslipidemia, Graves' disease. PRIMARY PROCEDURE/OPERATION: None. RADIOLOGICAL INVESTIGATION: Chest x-ray normal. Echocardiography showed normal EF. SIGNIFICANT LABORATORY DATA: Please see my HPI for further detail. Potassium 3.4. Free T3 was 3.86 . Free T4 was 0.77. DISCHARGE MEDICATIONS: Toprol-XL 100 mg p.o. daily, Xarelto 20 mg p.o. daily, Crestor 10 mg p.o. rommel ry evening, potassium chloride 10 mEq p.o. daily, methimazole 10 mg p.o. b.i.d., Celexa 20 mg p.o. da juancarlos. CONTRAINDICATIONS: None. CODE STATUS: FULL CODE. INPATIENT CONSULTANTS: Dr. Van. TEST RESULTS PENDING ON DISCHARGE: None. ALLERGIES: PENICILLIN. DISCHARGE PLAN: Post hospital, the patient will follow up with primary care physician and Dr. Van as instructed. HOSPITAL COURSE: A 57-year-old female who has history of paroxysmal atrial fibrillation. She was ad mitted for atrial fibrillation with RVR that was converted to sinus rhythm after giving Cardizem 20 m g bolus. The patient was given metoprolol as well. The patient remained in sinus rhythm. She has s till hyperthyroidism. She is following union organiser as an outpatient basis. Dr. Van was consu lted and we did echocardiography. Echocardiography was normal. Dr. Van cleared her for discharge . The patient was also wanted to go home today. At this point, the patient is in sinus rhythm. We are sending prescription for Toprol-XL 100 mg p.o. daily to pharmacy. The patient is medically stable for discharge today. The patient was admitted and discharged on the same day.
--- NOTE | 2018-03-23 20:37 | CON ---
DATE OF CONSULTATION: 03/23/2018 REASON FOR CONSULTATION: Atrial fibrillation with a rapid rate. HISTORY OF PRESENT ILLNESS: Ms. Tianna Felix is a very pleasant 57-year-old woman with history of atrial fibrillation, paroxysmal. The patient also has hyperthyroidism. 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 She just stopped the Xarelto the day before and the d ay of the surgery. She did have some postoperative swelling and edema in the right eye. The patient was awakened early this morning with rapid atrial fibrillation, did not resolve. She rec eived some medication, I believe diltiazem. The heart rate dropped transiently, but then she was goi ng in and out of atrial fibrillation with a rapid rate. She has received some beta betsey and she i s doing well now. She wants to go home. The patient has a history of paroxysmal atrial fibrillation in the past. There is no chest pain or pressure. Otherwise, she has been doing well from her heart standpoint. S he has had problem with her eyes. As mentioned, she plans on having eye surgery in the future. MEDICATIONS AT HOME: 1. She takes Xarelto 20 mg a day. 2. Toprol-XL 25 mg daily. 3. Crestor 10 mg daily. 4. Potassium chloride 10 mEq a day. 5. Methimazole 10 mg a day. 6. Celexa. SOCIAL HISTORY: No alcohol or tobacco abuse. She has occasional alcohol, not excessive. REVIEW OF SYSTEMS: Constitutional: No significant weight gain or loss. Vision: No changes. Heari ng: No changes. Pulmonary: No cough or wheezing. Gastrointestinal: Positive for some nausea and some vomiting. No diarrhea. Cardiac: No chest pain or pressure. Skin: No rashes. PHYSICAL EXAMINATION: GENERAL: This is a pleasant middle-aged woman in no distress. VITAL SIGNS: Blood pressure 114/67; pulse 66, regular. Although on the monitor now, it is 89, heart rate. Blood pressure now 114/67. NECK: Neck veins are normal. Carotid, there is a right bruit. LUNGS: Clear. CARDIAC: Normal S1, normal S2. There is no murmur, rub, or gallop. ABDOMEN: Soft, nontender. EXTREMITIES: No clubbing, cyanosis, or edema. SKIN: Warm and dry. PSYCHIATRIC: Mood and affect are normal. NEUROLOGIC: Grossly normal. PERTINENT LABORATORY AND X-RAY FINDINGS: Hemoglobin is 15.6. Troponin is less than 0.010. TSH is 0 .0338. Free T3 is 3.86, calcium 3.4. EKG, initially atrial fibrillation with a rapid rate, now rate is controlled. ASSESSMENT: 1. Atrial fibrillation with a rapid rate of 125 to 150, now resolved. 2. Hyperthyroidism. 3. Mild hypokalemia. PLAN: 1. She has had her potassium repleted. 2. Increase beta blockers. Give an extra dose of 50 mg now, then 100 mg daily, Toprol-XL. 3. Continue Xarelto. I did recommend she stop the Xarelto for 2 days before eye surgery and not sta rt until 2 days after. That is skip 2 days before surgery, do not take that day or the next day, and then resume; for a total of 4 days off. 4. Okay to be released home. Also, needs to have outpatient carotid Doppler to evaluate the right c arotid bruit.
[2018-03-23] MEDS ORDERED: Rosuvastatin 10 MG TAB PO SCH (21:00)
[2018-03-23] MEDS ORDERED: Methimazole 5 MG TAB PO SCH (21:00)
[2018-03-24] MEDS ORDERED: Citalopram 20 MG TAB PO SCH (09:00)
[2018-03-24] MEDS ORDERED: Aspirin 81 mg Enteric Coated Tablet PO SCH (09:00)
[2018-03-24] MEDS ORDERED: Potassium Chloride 10 MEQ TAB PO SCH (09:00)
[2018-03-24] MEDS ORDERED: Aspirin 325 MG TAB PO SCH (09:00)
== END 2018-03-23 17:31 | disposition home or self-care (01) ==
LOC: ERS 06:03 → 2SW 09:32
PROVIDERS: ADMIT Internal Medicine; ATTEND Internal Medicine
DX: I48.0 Paroxysmal atrial fibrillation (principal); I10 Essential (primary) hypertension; E78.5 Hyperlipidemia, unspecified; E05.00 Thyrotoxicosis with diffuse goiter without thyrotoxic crisis or storm; F41.8 Other specified anxiety disorders; E03.9 Hypothyroidism, unspecified; E87.6 Hypokalemia; Z79.01 Long term (current) use of anticoagulants; Z79.899 Other long term (current) drug therapy; Z88.0 Allergy status to penicillin
CPT/HCPCS: 36415; 71045; 80053; 82553; 83690; 83880; 84439; 84443; 84481; 84484; 85025; 93005; 93306; 96374; G0378

== ENCOUNTER 2018-04-06 14:56 | Outpatient (CLI) | payer OTHER ==
--- NOTE | 2018-04-06 17:32 | CT ---
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 Clinical note: Evidence of thyroid eye disease based upon clinical data. Need to rule out other o rbital neoplastic disease, risk of optic nerve compression, and defined retrobulbar anatomy for the m ost appropriate technique for possible globe repositioning and orbital decompression technique. COMPARISON: 12/12/17. FINDINGS: Compared to the prior CT, there is a new finding of a large osseous defect involving the medial 3/4 o f the floor and the inferior half of the medial wall, of the right orbit. The defect measures approxi mately 2.5 x 2. cm. Through it, intraorbital contents herniate into the right nasal cavity, completel y effacing the right middle meatus, and compressing and surrounding the right middle turbinate. The h erniation sac also occupies the upper medial 20-40% of the right maxillary sinus. There is also a new finding of almost complete effacement of the right inferior meatus. The left side of the nasal cavit y is clear. There is herniation of the inferior aspect of the right medial rectus muscle and herniati on of the entire inferior rectus muscle. There is also deep, inferomedial herniation of intraconal fa t along with the rectus muscle herniation. There is a new finding of fat stranding representing edema within the herniated component of intraconal fat. The right optic nerve is mildly distorted and mildly deviated medially, pulled inferomedially by the herniation of the orbit. The previously proptotic right globe has retracted such that there is no farhad bradly proptosis. There is right preseptal mild superficial soft tissue thickening. The bilateral globes have normal shape. No gas within the right orbit or bilateral globes. Contiguous with the herniated contents, there is a new finding of polypoid soft tissue density occupy ing approximately 50-75% volume of the right maxillary sinus. An inferiorly displaced orbital wall fr acture fragment is present, which measures at least 1 cm in transverse dimension. This is displaced i nferomedially a distance of approximately 1.5 cm. At the posterior aspect of the right lamina papyracea defect, there is also a large defect involving the former osseous septation between the right posterior ethmoid air cells and the right sphenoid air cell, such that there is contiguous opacification of right posterior ethmoid air cell with severe pa rtial opacification of the right sphenoid air cell, and occlusion/obliteration of the right sphenoeth moidal recess. The left sphenoid air cell is clear. Left sphenoethmoidal recess is patent and clear. The right anter ior ethmoid air cells, the left posterior and anterior ethmoid air cells, left frontal sinus, and lef t maxillary sinus, remain clear. Right frontal sinus is hypoplastic and clear. The left orbital najera , floor, and roof are intact. The left globe remains at least mildly proptotic. No fat stranding with in the left orbit. Bilateral orbital apices remain clear and remain intact. IMPRESSION: 1. Large, contiguous osseous defect (surgical vs traumatic) involving the right lamina papyracea and right orbital brady, with inferior displacement of fracture fragment. 2. Resulting severe herniation of right intraorbital contents, resulting in distortion of the right intraorbital anatomy. 3. Fat stranding involving the right intraorbital contents, especially the herniated component of th e intraconal fat, represents edema. It is unknown whether this edema is due to recent status of surge ry/trauma, or represents infection. 4. The right posterior ethmoid air cells and right sphenoid air cell are affected by this and are pa rtially opacified. 5. Soft tissue density material in the right maxillary sinus could represent severe mucus retention cyst formation, hematoma, or a combination of both. POS: [facility]
== END 2018-04-06 14:57 | disposition home or self-care (01) ==
LOC: BICCT 14:56
PROVIDERS: ATTEND Ophthalmology Ophthalmic Plastic and Reconstructive Surgery
DX: E05.00 Thyrotoxicosis with diffuse goiter without thyrotoxic crisis or storm (principal); H05.243 Constant exophthalmos, bilateral; R60.0 Localized edema; M89.9 Disorder of bone, unspecified; H05.331 Deformity of right orbit due to trauma or surgery; R93.89 Abnormal findings on diagnostic imaging of other specified body structures
CPT/HCPCS: 70480

== ENCOUNTER 2018-04-18 09:55 | Outpatient (CLI) | payer OTHER ==
--- NOTE | 2018-04-18 11:51 | ULT ---
THRYOID ULTRASOUND: Comparison: None. History: Thyromegaly, Grave's disease. Technique: Multiplanar grayscale and color doppler images were obtained in a thyroid ultrasound. FINDINGS: The thyroid is enlarged without focal nodules or cysts. Each lobe measures 5.7 cm in length. IMPRESSION: Thyromegaly without focal nodules or cysts. POS: [facility]
== END 2018-04-18 09:56 | disposition home or self-care (01) ==
LOC: BICULT 09:55
PROVIDERS: ATTEND Family Medicine
DX: E04.9 Nontoxic goiter, unspecified (principal); E01.0 Iodine-deficiency related diffuse (endemic) goiter
CPT/HCPCS: 76536

== ENCOUNTER 2018-08-10 11:37 | Outpatient (CLI) | payer OTHER ==
--- NOTE | 2018-08-10 12:58 | ULT ---
THYROID ULTRASOUND: 08/10/2018 HISTORY: Hyperthyroidism. Enlarged thyroid gland. COMPARISON: 04/18/2018 FINDINGS: Each level of the thyroid gland remains enlarged, with the right lobe measuring 5.6 cm x 2.4 cm x 2.5 cm and the left lobe measuring 5.7 cm x 2.4 cm x 2.4 cm. The thyroid isthmus measures 1.2 cm in AP dimensions. The thyroid gland demonstrates generalized heterogeneity. A discrete measurable nodule is not seen in either lobe of the thyroid gland, but there does appear to be an isoechoic nodule with in the thyroid isthmus, measuring 1.4 cm x 1.3 cm. IMPRESSION: Enlarged, heterogeneous thyroid gland with stable isoechoic nodule in the region of the thyroid isthm us. POS: [facility]
== END 2018-08-10 11:38 | disposition home or self-care (01) ==
LOC: BICULT 11:37
PROVIDERS: ATTEND Internal Medicine Cardiovascular Disease
DX: I48.0 Paroxysmal atrial fibrillation (principal); E05.90 Thyrotoxicosis, unspecified without thyrotoxic crisis or storm; E04.9 Nontoxic goiter, unspecified
CPT/HCPCS: 36415; 76536; 84436; 84443

== ENCOUNTER 2019-06-05 12:02 | Outpatient (CLI) | payer OTHER ==
--- NOTE | 2019-06-05 13:47 | MMO ---
Bilateral MAMMO Bilat Screen DDI+GUS. CLINICAL HISTORY: Patient is 58 years old and is seen for screening. The patient has no family history of breast cancer. The patient has no personal history of cancer. VIEWS: The views performed were: bilateral craniocaudal with tomosynthesis and bilateral mediolateral oblique with tomosynthesis. FILMS COMPARED: The present examination has been compared to prior imaging studies performed at [facility] on 02/04/2008, 09/29/2011 and 12/03/2013, and at [facility] on 06/25/2009. This study has been interpreted with the assistance of computer-aided detection. MAMMOGRAM FINDINGS: There are scattered fibroglandular densities. Finding 1: There is a new high density, irregular mass measuring 17 millimeters with spiculated margins seen in the left breast at 9 o'clock. Finding 2: There are benign appearing calcifications seen in both breasts. IMPRESSION: FINDING 1: NEW MASS IN THE LEFT BREAST REQUIRES ADDITIONAL EVALUATION. AN ULTRASOUND EXAM IS RECOMMENDED. FINDING 2: CALCIFICATIONS IN BOTH BREASTS ARE BENIGN. THE RESULTS OF THIS EXAM WERE SENT TO THE PATIENT. ACR BI-RADS Category 0 - Incomplete: Need additional imaging evaluation. [facility] will notify the patient of the need for additional imaging services. MAMMOGRAPHY NOTE: 1. A negative mammogram report should not delay a biopsy if a dominant of clinically suspicious mass is present. 2. Approximately 10% to 15% of breast cancers are not detected by mammography. 3. Adenosis and dense breasts may obscure an underlying neoplasm. Reported by: JIMBO RG MD Electonically Signed: [id number]
== END 2019-06-05 12:03 | disposition home or self-care (01) ==
LOC: BICMAMMO 12:02
PROVIDERS: ATTEND Family Medicine
DX: Z12.31 Encounter for screening mammogram for malignant neoplasm of breast (principal); N63.20 Unspecified lump in the left breast, unspecified quadrant; R92.1 Mammographic calcification found on diagnostic imaging of breast
CPT/HCPCS: 77063; 77067

== ENCOUNTER 2019-06-12 10:47 | Outpatient (CLI) | payer OTHER ==
--- NOTE | 2019-06-12 12:54 | ULT ---
LIMITED LEFT BREAST ULTRASOUND: 06/12/2019 PROVIDED CLINICAL HISTORY: New breast mass on screening mammogram. CORRELATION: Screening mammogram from 06/05/2019. FINDINGS: Limited sonographic interrogation at the 9 o'clock position of the left breast in the region of mammo graphic concern demonstrates an oval hypoechoic mass with micro-lobulated margins and some spiculatio n, measuring at least 1.2 cm in greatest dimension. IMPRESSION: BI-RADS category 4 - suspicious abnormality. Ultrasound guided biopsy is recommended. Results and recommendations discussed with the patient and questions answered. POS: [facility]
== END 2019-06-12 10:48 | disposition home or self-care (01) ==
LOC: BICULT 10:47
PROVIDERS: ATTEND Family Medicine
DX: N63.20 Unspecified lump in the left breast, unspecified quadrant (principal)

== ENCOUNTER → 2019-06-21 | Day surgery (SDC) | payer OTHER ==
--- NOTE | 2019-06-21 13:53 | MMO ---
Left Breast MAMMO Unilat Diag DDI LT. CLINICAL HISTORY: Patient is 58 years old and is seen for breast biopsy. The patient has no family history of breast cancer. The patient has no personal history of cancer. The patient has a history of left Ultrasound Guided Core Biopsy in May,. VIEWS: The views performed were: left craniocaudal and left mediolateral oblique. FILMS COMPARED: The present examination has been compared to prior imaging studies performed at [facility] on 09/29/2011, 12/03/2013, 06/05/2019 and 06/12/2019. This study has been interpreted with the assistance of computer-aided detection. MAMMOGRAM FINDINGS: There are scattered fibroglandular densities. There is a new biopsy clip seen in the inner region of the left breast. IMPRESSION: NEW BIOPSY CLIP IN THE LEFT BREAST IS CONFIRMED UTILIZING POST PROCEDURE MAMMOGRAM. THE RESULTS OF THIS EXAM WERE SENT TO THE PATIENT. MAMMOGRAPHY NOTE: 1. A negative mammogram report should not delay a biopsy if a dominant of clinically suspicious mass is present. 2. Approximately 10% to 15% of breast cancers are not detected by mammography. 3. Adenosis and dense breasts may obscure an underlying neoplasm. Reported by: JENNIFER SMITH MD Electonically Signed: [id number]
--- NOTE | 2019-06-21 14:02 | ULT ---
ULTRASOUND GUIDED LEFT BREAST BIOPSY: 06/21/2019 PROVIDED CLINICAL HISTORY: Left breast mass. FINDINGS: Informed consent was obtained from the patient. The patient was placed on the sonography stable in th e supine position and the 9 o'clock left breast mass was localized sonographically. The skin overlyin g this region was prepped and draped in the usual sterile manner. The skin and subcutaneous tissues w ere infiltrated with 1% buffered Lidocaine. Continuous sonographic guidance was utilized to obtain fo ur core samples of the mass using a 14 gauge biopsy device. Subsequently, continuous sonographic guid ance was utilized to deploy a biopsy site marker adjacent to the mass. The needles were withdrawn and hemostasis achieved. No immediate complications. IMPRESSION: Technically successful ultrasound guided left breast biopsy. Please correlate with histology results to follow. POS: OFF
== END ==
LOC: BICULT 12:57
PROVIDERS: ATTEND Family Medicine
PROC: 0H9U3ZX Drainage of Left Breast, Percutaneous Approach, Diagnostic (ICD-10-PCS; principal; 2019-06-21)
DX: C50.812 Malignant neoplasm of overlapping sites of left female breast (principal); Z88.0 Allergy status to penicillin
CPT/HCPCS: 19083; 88305

== ENCOUNTER 2019-07-05 09:30 | Outpatient (CLI) | payer OTHER ==
--- NOTE | 2019-07-05 10:06 | ULT ---
US Soft Tissue Other History: Axillary pain Comparison: Mammogram June 21, 2019 Findings: Within the left axillary multiple slightly reactive lymph nodes with single cortical with l ess than 2 mm. No abnormally enlarged cortically thickened lymph nodes. Impression: No suspicious adenopathy.
== END 2019-07-05 09:31 | disposition home or self-care (01) ==
LOC: ULT 09:30
PROVIDERS: ATTEND Internal Medicine Hematology & Oncology
DX: C50.412 Malignant neoplasm of upper-outer quadrant of left female breast (principal)
CPT/HCPCS: 76999

== ENCOUNTER 2019-07-12 06:26 | Outpatient (CLI) | payer OTHER ==
[2019-07-12 12:28] LABS: #Eosinphils 0.2 thou/uL (0.0-0.7); #Lymphocytes 2.6 thou/uL (1.20-3.40); #Monocytes 0.6 thou/uL (0.11-0.59); #Neutrophils 4.7 thou/uL (1.40-6.50); %Basophils 0.5 % (0.0-1.0); %Lymphocytes 31.6 % (21.0-51.0); %Monocytes 7.2 % (0.0-10.0); %Neutrophils 58.6 % (42.0-75.0); Hemoglobin 15.3 g/dL (12.0-16.0); Mean Corpuscular HGB CONC 32.5 g/dL (32.0-36.0); Mean Corpuscular Hemoglobin 29.1 pg (27.0-31.0); Mean Corpuscular Volume 89.5 fL (78.0-98.0); Mean Platelet Volume 7.6 fL (7.4-10.4); Platelet Count 308 thou/uL (130-400); RBC Distribution Width 13.1 % (11.5-14.5); Red Blood Cell (RBC) Count 5.25 mill/uL (4.20-5.40); White Blood Cell (WBC) Count 8.1 thou/uL (4.8-10.8)
[2019-07-12 12:49] LABS: Anion Gap 13 mmol/L (10-20); BUN (Urea Nitrogen) 15 mg/dL (9.8-20.1); Calc. Creatinine Clearance 0 mL/min (70-130); Calcium 9.5 mg/dL (7.8-10.44); Carbon Dioxide 27 mmol/L (22-29); Chloride 104 mmol/L (98-107); Estimated GFR-MDRD 75; Glucose 90 mg/dL (70-105); Potassium 4.3 mmol/L (3.5-5.1); Sodium 140 mmol/L (136-145)
== END 2019-07-12 06:27 | disposition home or self-care (01) ==
LOC: LABBT 06:26
PROVIDERS: ATTEND Specialist
DX: Z01.812 Encounter for preprocedural laboratory examination (principal); C50.912 Malignant neoplasm of unspecified site of left female breast
CPT/HCPCS: 80048; 85025

== ENCOUNTER 2019-07-18 08:04 | Day surgery (SDC) | payer OTHER ==
[2019-07-12 11:27] VITALS: BMI 30.3
[2019-07-18] MEDS ORDERED: ePHEDrine/0.9% NaCl/PF SYRINGE 50 mg/10 ml ONE (09:56)
[2019-07-18] MEDS ORDERED: Glycopyrrolate 0.2 MG/ML 5 ML SYRINGE ONE (09:56)
[2019-07-18] MEDS ORDERED: Dexamethasone 20 MG/5 ML VIAL ONE (09:56)
[2019-07-18] MEDS ORDERED: Ondansetron PF 4 MG/2 ML Vial ONE (09:56)
[2019-07-18] MEDS ORDERED: PROPOFOL 200 MG/20 ML VIAL ONE (09:56)
[2019-07-18] MEDS ORDERED: Lidocaine 1% PF 5 ML VIAL ONE (09:56)
[2019-07-18] MEDS ORDERED: Lidocaine 1% w/Epinephrine 1:100K 20 ML VIAL ONE (12:21)
[2019-07-18] MEDS ORDERED: Isosulfan Blue 50 MG/5 ML VIAL ONE (12:21)
[2019-07-18] MEDS ORDERED: Bupivacaine 0.25% HCL 30 ML VIAL ONE (12:21)
[2019-07-18] MEDS ORDERED: Ketorolac Tromethamine 30 MG/ML VIAL ONE (12:27)
[2019-07-18] MEDS ORDERED: Levofloxacin 500 mg/D5W 100 ml Premix Bag ONE (12:27)
[2019-07-18] MEDS ORDERED: Midazolam HCl 2 mg/2 ml Vial ONE (12:58)
[2019-07-18] MEDS ORDERED: Fentanyl 100 MCG/2 ML VIAL ONE (12:58)
--- NOTE | 2019-07-18 14:59 | MMO ---
EXAM: MAMMO Surgial Specimen PROVIDED CLINICAL HISTORY: Left breast mass and prior biopsy of mass with biopsy marker clip placement. Needle and wire localization was performed by Dr. Rooney COMPARISON: Prior postbiopsy mammograms on 06/21/2019 and mammograms on 06/05/2019. FINDINGS/IMPRESSION: Single surgical specimen mammogram is submitted for interpretation. The left breast specimen contains the localization guidewire with biopsy marker clip present. A spiculated mass is also present within the specimen. Findings were discussed with Dr. Rooney on 06/21/2019 at 1453 hours.
--- NOTE | 2019-07-18 15:40 | NM ---
Radionucleotide lymphoscintigraphy left breast HISTORY: Left breast cancer. FINDINGS: After explaining the procedure and answering all questions, the skin at the periareolar asp ect of the left breast was cleansed. Careful technique was used to inject a total volume of 1 cc containing 405 uCi technetium 99m filtered sulfur colloid into the skin in 4 equal aliquots at the 12 :00, 3:00, 6:00, and 9:00 periareolar positions. Injection sites were massaged by the patient. Imaging performed. At 1 hour, a focal area of increased uptake is evident at the axillary tail of the left breast. Patient was sent for day surgery. IMPRESSION: Technically successful lymphoscintigraphy left breast, revealing a single left axillary s entinel lymph node.
[2019-07-18] MEDS ORDERED: traMADol HCl 50 MG TAB ONE (16:32)
--- NOTE | 2019-07-19 11:41 | OP ---
DATE OF PROCEDURE: 07/18/2019 PREOPERATIVE DIAGNOSIS: Left breast cancer. POSTOPERATIVE DIAGNOSIS: Left breast cancer. PROCEDURES PERFORMED: Left axillary sentinel lymph node mapping, left axillary sentinel lymph node biopsy, left breast ultrasound-guided needle localization, left breast needle-localized lumpectomy. ANESTHESIA: General endotracheal. INDICATIONS: The patient is a 58-year-old white female. She had presented with a mass in her left breast that was biopsy proven to be invasive ductal carcinoma. After discussing options with her, she has elected to proceed with a breast conservation surgery. She underwent lymphoscintigraphy prior to presenting to the operating room and this demonstrated left axillary sentinel lymph nodes. DESCRIPTION OF OPERATION: Informed consent was obtained. The patient was taken to the operating room, where general endotracheal anesthesia obtained with the patient in supine position. Left breast was infiltrated with 3 mL of isosulfan blue in the periareolar subdermal tissue and the breast was massaged for 5 minutes. The breast and axilla were prepped with ChloraPrep and draped in sterile fashion. Attention was turned first to the axilla. Local anesthetic was infiltrated using a mixture of 1% lidocaine with epinephrine and 0.25% Marcaine. A transverse axillary incision was created and dissection was carried through skin and subcutaneous tissue as well as the superficial axillary fascia. Neoprobe was utilized to identify areas of maximum radio intensity. I was able to identify two dominant sentinel lymph nodes, the first was brightly blue-stained and the second one had lesser blue staining. Each of these areas had counts and excess of 50 while there was no other area within the axilla that had a count over about 10 to 15. Each of these nodes was dissected circumferentially and all investing lymphatics were divided between clamps and 3-0 silk ties. These were submitted for permanent pathology. Meticulous hemostasis was obtained within the wound. It was closed in layers with 3-0 and 4-0 Monocryl. Attention was turned to the left breast. Ultrasound was performed on the left breast identifying the obvious malignancy at about the 10 o'clock radian. Its location within the breast was marked in a grid fashion on the skin. Ultrasound-guided needle localization was then performed with a needle entering the malignancy in a lateral to medial fashion. This was passed through the posterior aspect of the cancer. A transverse skin incision was created based on needle insertion site. Dissection was carried through skin and subcutaneous tissue. The malignancy was relatively deep within the breast almost 2 cm from the skin edge. I raised skin flaps a little over a centimeter deep in the breast circumferentially. The tissue into which the needle entered was grasped with Allis clamps and a wide dissection of a lump of tissues surrounding the needle was performed using Metzenbaum scissors. Dissection was carried posterior to the needle and the tissue was widely removed. It was removed intact and marking sutures were placed for orientation and it was passed off the field. Specimen mammography revealed the wire and the clip within the malignancy. The specimen was then submitted for pathology. The wound was irrigated. All irrigant was aspirated. Meticulous hemostasis was obtained. The wound was closed in layers with 3-0 and 4-0 Monocryl suture. Dermabond was placed external to both incisions. Additional local anesthetic was infiltrated during closure. The patient tolerated the procedure well and was taken to recovery room. Blood loss had been negligible, and there were no complications. Job ID: [id number]
== END 2019-07-18 16:58 | disposition home or self-care (01) ==
LOC: SDC 08:04
PROVIDERS: ATTEND Specialist
PROC: 0HBU0ZZ Excision of Left Breast, Open Approach (ICD-10-PCS; principal; 2019-07-18)
PROC: 07B60ZX Excision of Left Axillary Lymphatic, Open Approach, Diagnostic (ICD-10-PCS; principal; 2019-07-18)
DX: C50.412 Malignant neoplasm of upper-outer quadrant of left female breast (principal); F41.9 Anxiety disorder, unspecified; F32.9 Major depressive disorder, single episode, unspecified; I10 Essential (primary) hypertension; I48.0 Paroxysmal atrial fibrillation; E78.5 Hyperlipidemia, unspecified; E89.0 Postprocedural hypothyroidism; Z17.0 Estrogen receptor positive status [ER+]; Z79.01 Long term (current) use of anticoagulants; Z79.899 Other long term (current) drug therapy; Z88.0 Allergy status to penicillin
CPT/HCPCS: 76098; 78195; 88307; 88342; A9541; J1100; J1885; J1956; J2001; J2250; J2405; J2704; J3010; Q9968; S0020

== ENCOUNTER 2020-03-18 10:02 | Outpatient (CLI) | payer OTHER ==
--- NOTE | 2020-03-18 11:54 | BD ---
DEXA BONE DENSITY SCAN: Date: 03/18/2020 HISTORY: Postmenopausal female undergoing screening for osteoporosis. Lumbar Spine BMD (g/cm2) L1 0.843 T-Score -1.3 L2 0.892 T-Score -1.2 L3 0.832 T-Score -2.3 L4 0.920 T-Score -1.3 L1-L4 0.875 T-Score -1.6 Femoral Neck 0.738 T-Score -1.0 Total Femur 0.961 T-Score 0.2 The FRAX-WHO fracture risk assessment tool reports a 10 year risk for fracture at 7% for major osteop orotic fracture and 0.4% for hip fracture. IMPRESSION: Osteopenia within the lumbar spine correlating with a moderately increased risk for fracture. POS: CHAKA
== END 2020-03-18 10:03 | disposition home or self-care (01) ==
LOC: BICMAMMO 10:02
PROVIDERS: ATTEND Internal Medicine Hematology & Oncology
DX: Z13.820 Encounter for screening for osteoporosis (principal); N95.8 Other specified menopausal and perimenopausal disorders; M85.89 Other specified disorders of bone density and structure, multiple sites
CPT/HCPCS: 77080

== ENCOUNTER 2020-06-08 10:41 | Outpatient (CLI) | payer OTHER ==
--- NOTE | 2020-06-08 11:15 | MMO ---
Bilateral MAMMO Bilat Diag DDI+GUS. CLINICAL HISTORY: Patient is 59 years old and is seen for diagnostic exam. The patient has no family history of breast cancer. The patient has a history of Core biopsy procedure revealed invasive ductal left breast carcinoma in June,. The patient has a history of left Ultrasound Guided Core Biopsy in May, and left Lumpectomy in 2019 - invasive ductal carcinoma. VIEWS: The views performed were: bilateral craniocaudal with tomosynthesis; bilateral mediolateral oblique with tomosynthesis; and bilateral mediolateral with tomosynthesis. FILMS COMPARED: The present examination has been compared to prior imaging studies performed at [facility] on 12/03/2013, 06/05/2019, 06/12/2019 and 06/21/2019. This study has been interpreted with the assistance of computer-aided detection. MAMMOGRAM FINDINGS: There are scattered fibroglandular densities. Benign calcifications are noted bilaterally. There are left sided post-operative changes. There are no suspicious masses, suspicious calcifications, or new areas of architectural distortion. IMPRESSION: THERE IS NO MAMMOGRAPHIC EVIDENCE OF MALIGNANCY. A ROUTINE FOLLOW-UP MAMMOGRAM IN 1 YEAR IS RECOMMENDED. THE RESULTS OF THIS EXAM WERE SENT TO THE PATIENT. ACR BI-RADS Category 2 - Benign finding MAMMOGRAPHY NOTE: 1. A negative mammogram report should not delay a biopsy if a dominant of clinically suspicious mass is present. 2. Approximately 10% to 15% of breast cancers are not detected by mammography. 3. Adenosis and dense breasts may obscure an underlying neoplasm. Reported by: SHERI ACOSTA MD Electonically Signed: [id number]
== END 2020-06-08 10:42 | disposition home or self-care (01) ==
LOC: BICMAMMO 10:41
PROVIDERS: ATTEND Internal Medicine Hematology & Oncology
DX: Z08 Encounter for follow-up examination after completed treatment for malignant neoplasm (principal); Z85.3 Personal history of malignant neoplasm of breast
CPT/HCPCS: 77066; G0279

== ENCOUNTER 2021-06-10 13:58 | Outpatient (CLI) | payer BC | END 2021-06-10 13:59 | disposition home or self-care (01) | LOC: BICMAMMO 13:58 | PROVIDERS: ATTEND Internal Medicine Hematology & Oncology | DX: Z08 Encounter for follow-up examination after completed treatment for malignant neoplasm (principal); M85.88 Other specified disorders of bone density and structure, other site; Z85.3 Personal history of malignant neoplasm of breast | CPT/HCPCS: 77066; 77080; G0279 ==

== ENCOUNTER 2022-06-13 09:12 | Outpatient (CLI) | payer BC | END 2022-06-13 09:13 | disposition home or self-care (01) | LOC: BICMAMMO 09:12 | PROVIDERS: ATTEND Internal Medicine Hematology & Oncology | DX: Z08 Encounter for follow-up examination after completed treatment for malignant neoplasm (principal); Z85.3 Personal history of malignant neoplasm of breast | CPT/HCPCS: 77066; 77080; G0279 ==

== ENCOUNTER 2023-08-07 15:13 | Outpatient (CLI) | payer BC | END 2023-08-07 15:14 | disposition home or self-care (01) | LOC: BICMAMMO 15:13 | PROVIDERS: ATTEND Internal Medicine Hematology & Oncology | DX: M85.851 Other specified disorders of bone density and structure, right thigh (principal); M85.852 Other specified disorders of bone density and structure, left thigh; M81.0 Age-related osteoporosis without current pathological fracture | CPT/HCPCS: 77080 ==

== ENCOUNTER 2024-06-17 13:23 | Outpatient (CLI) | payer MEDICARE | END 2024-06-17 13:24 | disposition home or self-care (01) | LOC: BICMAMMO 13:23 | PROVIDERS: ATTEND Family Medicine | DX: Z08 Encounter for follow-up examination after completed treatment for malignant neoplasm (principal); Z85.3 Personal history of malignant neoplasm of breast | CPT/HCPCS: 77066; G0279 ==

== ENCOUNTER 2025-06-24 09:05 | Outpatient (CLI) | payer MEDICARE | END 2025-06-24 09:06 | disposition home or self-care (01) | LOC: BICMAMMO 09:05 | PROVIDERS: ATTEND Internal Medicine Hematology & Oncology | DX: Z12.31 Encounter for screening mammogram for malignant neoplasm of breast (principal); Z98.890 Other specified postprocedural states; Z85.3 Personal history of malignant neoplasm of breast; Z91.89 Other specified personal risk factors, not elsewhere classified | CPT/HCPCS: 77063; 77067 ==